=== PATIENT | female | born 1995 | race Caucasian/White ===

== ENCOUNTER 2017-02-12 08:00 | Outpatient (CLI) | payer MEDICAID | END 2017-02-12 08:01 | disposition home or self-care (01) | LOC: LAB.R 08:00 | PROVIDERS: ATTEND Nurse Practitioner Obstetrics & Gynecology | DX: Z11.3 Encounter for screening for infections with a predominantly sexual mode of transmission (principal) | CPT/HCPCS: 87491; 87591 ==

== ENCOUNTER 2017-02-28 09:51 | Outpatient (CLI) | payer MEDICAID ==
[2017-02-28 18:04] LABS: BASOPHILS % (AUTO) 0.4 %; EOSINOPHILS # (AUTO) 0.1 10^3/uL (0.0-0.7); EOSINOPHILS % (AUTO) 1.7 %; HCT - HEMATOCRIT 37.9 % (37.0-47.0); HGB - HEMOGLOBIN 12.6 g/dL (12.0-16.0); LYMPHOCYTES # (AUTO) 1.7 10^3/uL (1.5-3.5); LYMPHOCYTES % (AUTO) 20.6 %; MEAN CORPUSCULAR HEMOGLOBIN 29.7 pg (27.0-31.0); MEAN CORPUSCULAR HGB CONC 33.3 g/dL (32.0-36.0); MEAN CORPUSCULAR VOLUME 88.9 fL (81.0-99.0); MEAN PLATELET VOLUME 8.4 fL (7.9-10.8); MONOCYTES # (AUTO) 0.6 10^3/uL (0.0-1.0); MONOCYTES % (AUTO) 7.2 %; NEUTROPHILS # (AUTO) 5.9 10^3/uL (1.5-6.6); NEUTROPHILS % (AUTO) 70.1 %; RED BLOOD COUNT 4.26 10^6/uL (4.20-5.40); RED CELL DISTRIBUTION WIDTH 13.5 % (12.0-15.0); UNCORRECTED WHITE BLOOD COUNT 8.4 x10^3/uL; WHITE BLOOD COUNT 8.4 x10^3/uL (4.8-10.8)
[2017-02-28 18:10] LABS: BILIRUBIN,URINE NEGATIVE (NEGATIVE); PH,URINE 6.5 PH (5.0-7.5)
[2017-02-28 19:36] LABS: WBC,URINE 0-3 /HPF (0-5)
[2017-03-03 20:56] LABS: TEST RESULT REPORT (())
== END 2017-02-28 09:52 | disposition home or self-care (01) ==
LOC: LAB.F 09:51
PROVIDERS: ATTEND Nurse Practitioner Obstetrics & Gynecology
DX: Z36 Encounter for antenatal screening of mother (principal)
CPT/HCPCS: 36415; 81001; 81599; 85025; 86762; 86780; 86850; 86900; 86901; 87340; 87389

== ENCOUNTER 2017-03-04 20:05 | Emergency (ER) | payer MEDICAID ==
[2017-03-04] MEDS ORDERED: METOCLOPRAMIDE 10 MG/2 ML VIAL IVP STA (20:26)
[2017-03-04] MEDS ORDERED: SODIUM CHLORIDE 0.9% 1,000 ML IV STA (20:26)
[2017-03-04] MEDS ORDERED: METOCLOPRAMIDE 10 MG/2 ML VIAL ONE (20:42)
== END 2017-03-04 22:20 | disposition home or self-care (01) ==
DX: O21.0 Mild hyperemesis gravidarum (principal); O26.891 Other specified pregnancy related conditions, first trimester; R19.7 Diarrhea, unspecified; Z3A.12 12 weeks gestation of pregnancy

== ENCOUNTER 2017-03-05 06:07 | Emergency (ER) | payer MEDICAID ==
[2017-03-05] MEDS ORDERED: METOCLOPRAMIDE 10 MG/2 ML VIAL IVP STA (06:23)
[2017-03-05] MEDS ORDERED: SODIUM CHLORIDE 0.9% 1,000 ML IV STA (06:24)
[2017-03-05] MEDS ORDERED: METOCLOPRAMIDE 10 MG/2 ML VIAL ONE (06:35)
--- NOTE | 2017-03-05 07:00 | ED Physician Documentation ---
PD HPI NVD - Stated complaint Stated Complaint: NAUSEA,12 WK PG - Chief complaint Chief Complaint: Abd Pain - History obtained from History obtained from: Patient - History of Present Illness Timing - onset: How many days ago (several days of worse nausea with vomiting. Has had some related without Rx treatment. Developed worse nausea with diarrhea too starting 3 days ago. Tried rectal phenergan without improvement. Seen in ED last evening with improvement by IV fluids and Zofran, but vomiting again about 1 am. Feeling heartburn often the past few days. Having some decrease in diarrhea but still persists.) Timing - details: Gradual onset, Still present, Still present in ED Associated symptoms: Abdominal pain (intermittent crampy). No: Fever, Chest pain, Hematemesis, Near syncope / syncope Contributing factors: No: Sick contact, Bad food, Travel, Recent antibiotics Improved by: No: Eating, Meds Worsened by: Eating Recently seen: Emergency Dept (last evening) Review of Systems Constitutional: denies: Fever, Chills Nose: reports: Congestion (mild). denies: Rhinorrhea / runny nose Throat: denies: Sore throat Cardiac: denies: Chest pain / pressure, Palpitations Respiratory: denies: Dyspnea, Cough GI: reports: Nausea, Vomiting, Diarrhea. denies: Abdominal Swelling, Hematemesis, Bloody / black stool : denies: Dysuria, Frequency, Discharge, Vaginal bleeding Skin: denies: Rash, Lesions Neurologic: reports: Generalized weakness. 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), Other (currently 12 weeks ) - Past Surgical History Past Surgical History: Yes Ortho: Other - Present Medications Home Medications: Ambulatory Orders Medication Instructions Recorded Confirmed Promethazine Sup [Phenergan Supp] 12.5 mg DE Q6H PRN 03/05/17 03/05/17 - Allergies Allergies/Adverse Reactions: Allergies Allergy/AdvReac Type Severity Reaction Status Date / Time No Known Drug Allergies Allergy Verified 03/04/17 20:13 - Social History Does the pt smoke?: No Smoking Status: Never smoker Does the pt drink ETOH?: Yes Does the pt have substance abuse?: No - Immunizations Immunizations are current?: Yes - POLST Patient has POLST: No PD ED PE NORMAL - Vitals Vital signs reviewed: Yes - General General: Alert and oriented X 3, No acute distress, Well developed/nourished - HEENT HEENT: PERRL (nonicteric) - Neck Neck: Supple, no meningeal sign, No adenopathy - Cardiac Cardiac: RRR, No murmur - Respiratory Respiratory: Clear bilaterally - Abdomen Abdomen: Normal bowel sounds, Soft, Non distended, No organomegaly, Other (some tender epigastric. Not tender RLQ. ) - Female Female : Deferred - Rectal Rectal: Deferred - Back Back: No CVA TTP - Derm Derm: No: Normal color (pale) - Extremities Extremities: No tenderness to palpate, No edema, No calf tenderness / cord - Neuro Neuro: Alert and oriented X 3, No motor deficit, Normal speech Results - Vitals Vitals: Vital Signs - 24 hr 03/05/17 03/05/17 06:12 07:53 Temperature 36.4 C L Heart Rate 91 83 Respiratory 20 20 Rate Blood Pressure 136/71 H 129/80 O2 Saturation 99 100 Oxygen O2 Source Room air PD MEDICAL DECISION MAKING - ED course Complexity details: reviewed old records, re-evaluated patient (several meds here in ED and still nauseated. She will need to be in hospital for further treatment and hydration. ), considered differential (seems likely baseline related nausea, which she has had, with now likely GE given the worse vomiting and diarrhea. ), d/w patient, d/w reservoir engineering consultant (Grace, media production support manager) Departure - Departure Disposition: ED Place in Observation Clinical Impression: Nausea vomiting and diarrhea Intractable nausea and vomiting Qualifiers: Vomiting type: unspecified Qualified Code(s): R11.2 - Nausea with vomiting, unspecified Qualifiers: Weeks of gestation: 12 weeks Qualified Code(s): Z3A.12 - 12 weeks gestation of Condition: Stable Record reviewed to determine appropriate education?: Yes
[2017-03-05] MEDS ORDERED: ONDANSETRON 4 MG/2 ML VIAL IVP STA ×3 (07:12→08:45)
[2017-03-05] MEDS ORDERED: FAMOTIDINE 20 MG/50 ML 50 ML IV ONE ×2 (07:13→07:16)
[2017-03-05] MEDS ORDERED: ONDANSETRON 4 MG/2 ML VIAL ONE ×3 (07:15→08:45)
[2017-03-05] MEDS ORDERED: diphenhydrAMINE INJ 50 MG/ML VIAL IVP STA (07:45)
[2017-03-05] MEDS ORDERED: diphenhydrAMINE INJ 50 MG/ML VIAL ONE (07:49)
[2017-03-05] MEDS ORDERED: SODIUM CHLORIDE 0.9% 1,000 ML IV ONE (08:12)
[2017-03-05 09:11] VITALS: BP 131/72
== END 2017-03-05 09:30 | disposition home or self-care (01) ==
LOC: ED 06:07
DX: O21.0 Mild hyperemesis gravidarum (principal); O26.891 Other specified pregnancy related conditions, first trimester; R19.7 Diarrhea, unspecified; Z3A.12 12 weeks gestation of pregnancy
CPT/HCPCS: 96374; 96375; 96376; 99283; 99284

== ENCOUNTER 2017-03-05 09:22 | Inpatient (IN) | payer MEDICAID ==
[2017-03-05] MEDS: diphenhydrAMINE INJ 50 MG/ML VIAL IVP PRN ×3 (10:44→22:36)
[2017-03-05] MEDS ORDERED: LACTATED RINGERS 1,000 ML IV ONE (11:00)
[2017-03-05] MEDS: DEXTROSE 5%-LACTATED RINGERS 1,000 ML IV SCH ×2 (11:46→19:45)
[2017-03-05] MEDS: METOCLOPRAMIDE 10 MG/2 ML VIAL IVP PRN ×2 (12:27→20:29)
[2017-03-05] MEDS: ONDANSETRON 4 MG/2 ML VIAL IVP PRN ×3 (12:42→21:34)
[2017-03-05] MEDS ORDERED: SODIUM CHLORIDE FLUSH 0.9% 10 ML SYRINGE IVP ONE ×2 (16:10→20:25)
[2017-03-05] MEDS ORDERED: FAMOTIDINE 20 MG/50 ML 50 ML IV ONE (19:48)
[2017-03-05] MEDS: FAMOTIDINE 20 MG/50 ML 50 ML IV SCH (19:50)
[2017-03-05] MEDS ORDERED: SCOPOLAMINE PATCH TOP SCH (21:30)
[2017-03-06] MEDS ORDERED: SODIUM CHLORIDE FLUSH 0.9% 10 ML SYRINGE IVP ONE ×7 (01:21→16:54)
[2017-03-06] MEDS: ONDANSETRON 4 MG/2 ML VIAL IVP PRN ×4 (01:31→19:59)
[2017-03-06] MEDS: METOCLOPRAMIDE 10 MG/2 ML VIAL IVP PRN ×2 (02:16→07:58)
[2017-03-06] MEDS: DEXTROSE 5%-LACTATED RINGERS 1,000 ML IV SCH ×2 (02:25→07:49)
[2017-03-06] MEDS ORDERED: ONDANSETRON 4 MG/2 ML VIAL IVP ONE (03:07)
[2017-03-06] MEDS: diphenhydrAMINE INJ 50 MG/ML VIAL IVP PRN (04:23)
[2017-03-06] MEDS: MAG HYDROX/AL HYDROX/SIMETH 30 ML UDC PO PRN ×3 (04:29→13:09)
[2017-03-06] MEDS ORDERED: diphenhydrAMINE INJ 50 MG/ML VIAL IVP PRN (09:18)
[2017-03-06] MEDS: PROMETHAZINE INJ 25 MG in SODIUM CHLORIDE 0.9% 50 ML IV PRN ×3 (10:15→23:22)
[2017-03-06] MEDS: MULTIVITAMIN IV SCH (10:47)
[2017-03-06] MEDS: THIAMINE IV SCH (10:47)
[2017-03-06] MEDS: [UNRECOGNIZED DRUG - OTHER] IV SCH (10:47)
[2017-03-06] MEDS: FOLIC ACID IV SCH (10:47)
[2017-03-06] MEDS: FAMOTIDINE 20 MG/50 ML 50 ML IV SCH ×2 (11:56→21:07)
[2017-03-06] MEDS: HYDROCORTISONE SUCCINATE 100 MG/2 ML VIAL IVP SCH ×2 (14:26→21:07)
[2017-03-06] MEDS: CALCIUM CARBONATE CHEW 500 MG TABLET PO PRN ×2 (20:30→22:16)
[2017-03-06] MEDS ORDERED: DOXYLAMINE 25 MG TABLET PO SCH (21:00)
[2017-03-07] MEDS: ONDANSETRON 4 MG/2 ML VIAL IVP PRN ×3 (01:19→10:33)
[2017-03-07] MEDS: DEXTROSE 5%-LACTATED RINGERS 1,000 ML IV SCH (05:05)
[2017-03-07] MEDS: PROMETHAZINE INJ 25 MG in SODIUM CHLORIDE 0.9% 50 ML IV PRN (05:09)
[2017-03-07] MEDS: CALCIUM CARBONATE CHEW 500 MG TABLET PO PRN ×3 (09:29→13:25)
[2017-03-07] MEDS: FAMOTIDINE 20 MG/50 ML 50 ML IV SCH (09:29)
[2017-03-07] MEDS ORDERED: SODIUM CHLORIDE FLUSH 0.9% 10 ML SYRINGE IVP ONE ×3 (09:59→12:20)
[2017-03-07] MEDS: HYDROCORTISONE SUCCINATE 100 MG/2 ML VIAL IVP SCH (10:03)
[2017-03-07] MEDS: MULTIVITAMIN IV SCH (11:28)
[2017-03-07] MEDS: FOLIC ACID IV SCH (11:28)
[2017-03-07] MEDS: THIAMINE IV SCH (11:28)
[2017-03-07] MEDS: [UNRECOGNIZED DRUG - OTHER] IV SCH (11:28)
[2017-03-07] MEDS ORDERED: ceFAZolin 1 GM VIAL IVP STA (12:20)
[2017-03-07] MEDS ORDERED: ceFAZolin 1 GM in SODIUM CHLORIDE 0.9% MINIBAG 100 ML IV ONE (13:00)
== END 2017-03-07 14:40 | disposition home or self-care (01) | DRG 781 ==
DX: O21.0 Mild hyperemesis gravidarum (principal); O98.511 Other viral diseases complicating pregnancy, first trimester; Z3A.12 12 weeks gestation of pregnancy; A08.4 Viral intestinal infection, unspecified

== ENCOUNTER 2017-04-03 08:56 | Outpatient (CLI) | payer MEDICAID ==
[2017-04-04 13:51] LABS: TEST RESULT REPORT (())
== END 2017-04-03 08:57 | disposition home or self-care (01) ==
LOC: LAB.F 08:56
PROVIDERS: ATTEND Nurse Practitioner Family
DX: Z36 Encounter for antenatal screening of mother (principal)
CPT/HCPCS: 36415; 81511; 81599

== ENCOUNTER 2017-05-02 13:38 | Outpatient (CLI) | payer MEDICAID ==
--- NOTE | 2017-05-06 15:00 | Ultrasound Report ---
OB ULTRASOUND: 05/02/2017 CLINICAL INDICATION: anatomy. TECHNIQUE: Real-time scanning was performed with account development representative static images obtained. LAST MENSTRUAL PERIOD 12/10/2016 Clinical Age 20 weeks 3 days US Age 20 weeks 1 day EFW Hadlock 337 g EFW% Hadlock --- Heart Rate 155 bpm EDC 09/16/2017 US EDC 09/18/2017 BPD [place] 20 weeks 0 days; Mean mm 46.5 HC [place] 20 weeks 1 day; Mean mm 175.7 AC [place] 20 weeks 3 days; Mean mm 151.7 FL [place] 20 weeks 0 days; Mean mm 32.0 Presentation cephalic Placental Location anterior Cervical Length --- Amniotic Fluid 14.5 cm FINDINGS: There is a single viable intrauterine gestation, in cephalic presentation. heart rate is 155 BPM. The placenta is anterior, without evidence of previa. Amniotic fluid volume is normal, with an HAO of 14.5. By size, the fetus measures 20.1 weeks (20.5 weeks by LMP). The following anatomic structures were visualized and appear normal: The intracranial contents, including the ventricles and posterior fossa; the lips and orbits; the spine; the heart, including 4 chamber view and outflow tracts, and diaphragm; the abdominal contents, including the stomach, the bilateral kidneys, and urinary bladder, as well as a normal 3 vessel cord insertion; 4 limbs. No free fluid or adnexal lesion is appreciated. IMPRESSION: SINGLE VIABLE INTRAUTERINE GESTATION, WITH SIZE IN KEEPING WITH LMP DATING. NORMAL ANATOMIC SURVEY. [facility]
== END 2017-05-02 13:39 | disposition home or self-care (01) ==
LOC: DI 13:38
PROVIDERS: ATTEND Nurse Practitioner Obstetrics & Gynecology
DX: Z34.82 Encounter for supervision of other normal pregnancy, second trimester (principal); Z3A.20 20 weeks gestation of pregnancy
CPT/HCPCS: 76811

== ENCOUNTER 2017-06-12 14:33 | Outpatient (CLI) | payer MEDICAID ==
[2017-06-12 16:15] LABS: BASOPHILS % (AUTO) 0.3 %; EOSINOPHILS # (AUTO) 0.2 10^3/uL (0.0-0.7); EOSINOPHILS % (AUTO) 1.5 %; HGB - HEMOGLOBIN 10.4 g/dL (12.0-16.0); LYMPHOCYTES # (AUTO) 1.8 10^3/uL (1.5-3.5); LYMPHOCYTES % (AUTO) 16.6 %; MEAN CORPUSCULAR HEMOGLOBIN 29.8 pg (27.0-31.0); MEAN CORPUSCULAR HGB CONC 33.5 g/dL (32.0-36.0); MEAN CORPUSCULAR VOLUME 88.9 fL (81.0-99.0); MEAN PLATELET VOLUME 7.8 fL (7.9-10.8); MONOCYTES # (AUTO) 0.8 10^3/uL (0.0-1.0); MONOCYTES % (AUTO) 7.1 %; NEUTROPHILS # (AUTO) 7.9 10^3/uL (1.5-6.6); NEUTROPHILS % (AUTO) 74.5 %; RED BLOOD COUNT 3.49 10^6/uL (4.20-5.40); RED CELL DISTRIBUTION WIDTH 13.5 % (12.0-15.0); UNCORRECTED WHITE BLOOD COUNT 10.7 x10^3/uL; WHITE BLOOD COUNT 10.7 x10^3/uL (4.8-10.8)
== END 2017-06-12 14:34 | disposition home or self-care (01) ==
LOC: LAB.F 14:33 → LAB 14:34
PROVIDERS: ATTEND Registered Nurse
DX: Z34.82 Encounter for supervision of other normal pregnancy, second trimester (principal)
CPT/HCPCS: 36415; 82950; 85025; 86850

== ENCOUNTER 2017-06-14 18:34 | Outpatient (CLI) | payer MEDICAID ==
[2017-06-14] MEDS ORDERED: ONDANSETRON 4 MG/2 ML VIAL ONE (19:38)
[2017-06-14] MEDS ORDERED: SODIUM CHLORIDE FLUSH 0.9% 10 ML SYRINGE IVP ONE (19:39)
[2017-06-14] MEDS ORDERED: LACTATED RINGERS 1,000 ML IV ONE (19:39)
[2017-06-14 20:02] VITALS: BP 119/62
[2017-06-14 21:33] LABS: BILIRUBIN,URINE NEGATIVE (NEGATIVE)
[2017-06-14 21:38] LABS: UR CULTURE IF IND NOT INDICATED; WBC,URINE 0-3 /HPF (0-5)
[2017-06-14] MEDS ORDERED: LACTATED RINGERS 1,000 ML IV SCH (22:00)
[2017-06-14] MEDS ORDERED: LACTATED RINGERS 500 ML IV ONE (22:00)
[2017-06-14] MEDS ORDERED: ONDANSETRON 4 MG/2 ML VIAL IVP SCH (22:00)
== END 2017-06-14 21:25 | disposition home or self-care (01) ==
LOC: WFO 18:34 → FBP 18:35 → WFO 21:25
PROVIDERS: ATTEND Registered Nurse
DX: O21.9 Vomiting of pregnancy, unspecified (principal); Z3A.26 26 weeks gestation of pregnancy
CPT/HCPCS: 81001; 96374; 99213; A9270; J7120; 87086

== ENCOUNTER 2017-08-01 13:31 | Outpatient (CLI) | payer MEDICAID ==
[2017-08-01 13:52] LABS: HCT - HEMATOCRIT 30.5 % (37.0-47.0); HGB - HEMOGLOBIN 10.2 g/dL (12.0-16.0); MEAN CORPUSCULAR HEMOGLOBIN 28.8 pg (27.0-31.0); MEAN CORPUSCULAR HGB CONC 33.4 g/dL (32.0-36.0); MEAN CORPUSCULAR VOLUME 86.1 fL (81.0-99.0); RED BLOOD COUNT 3.55 10^6/uL (4.20-5.40); RED CELL DISTRIBUTION WIDTH 14.6 % (12.0-15.0); WHITE BLOOD COUNT 11.4 x10^3/uL (4.8-10.8)
== END 2017-08-01 13:32 | disposition home or self-care (01) ==
LOC: LAB 13:31
PROVIDERS: ATTEND Registered Nurse
DX: O99.13 Other diseases of the blood and blood-forming organs and certain disorders involving the immune mechanism complicating the puerperium (principal)
CPT/HCPCS: 36415

== ENCOUNTER 2017-09-20 11:05 | Inpatient (IN) | payer MEDICAID ==
[~2017-09-20 11:05] MED LIST: ONDANSETRON 4 MG/2 ML VIAL IVP PRN; OXYTOCIN/SODIUM CHLORIDE 250 ML IV ONE; PENICILLIN G POTASSIUM 5,000,000 UNIT in SODIUM CHLORIDE 0.9% MINIBAG 100 ML IV ONE; SODIUM CHLORIDE FLUSH 0.9% 10 ML SYRINGE IVP PRN; fentaNYL 100 MCG/2 ML VIAL IVP PRN
[2017-09-20 11:56] LABS: BASOPHILS # (AUTO) 0.1 10^3/uL (0.0-0.1); BASOPHILS % (AUTO) 0.4 %; EOSINOPHILS # (AUTO) 0.1 10^3/uL (0.0-0.7); EOSINOPHILS % (AUTO) 0.5 %; HGB - HEMOGLOBIN 10.9 g/dL (12.0-16.0); LYMPHOCYTES # (AUTO) 1.5 10^3/uL (1.5-3.5); LYMPHOCYTES % (AUTO) 12.1 %; MEAN CORPUSCULAR HEMOGLOBIN 28.5 pg (27.0-31.0); MEAN CORPUSCULAR HGB CONC 33.8 g/dL (32.0-36.0); MEAN CORPUSCULAR VOLUME 84.3 fL (81.0-99.0); MEAN PLATELET VOLUME 8.2 fL (7.9-10.8); MONOCYTES # (AUTO) 0.6 10^3/uL (0.0-1.0); MONOCYTES % (AUTO) 5.1 %; NEUTROPHILS # (AUTO) 10.3 10^3/uL (1.5-6.6); NEUTROPHILS % (AUTO) 81.9 %; PLT - PLATELET COUNT 248 10^3/uL (130-450); RED BLOOD COUNT 3.82 10^6/uL (4.20-5.40); RED CELL DISTRIBUTION WIDTH 16.7 % (12.0-15.0); WHITE BLOOD COUNT 12.6 x10^3/uL (4.8-10.8)
[2017-09-20] MEDS: LACTATED RINGERS 1,000 ML IV SCH ×2 (12:12→15:56)
--- NOTE | 2017-09-20 13:04 | HISTORY & PHYSICAL EXAMINATION ---
Admit History - Instructions [place]/Slash: -Left hand click circles element as positive or present. -Right hand click slashes element as negative or not present. - Visit Reason Visit Reason: Contractions (0630 onset of contractions; worse since 1000, no LOF /VB) - : 2 Parity: 1 Premature: 0 Ectopic: 0 : 0 Care: positive: [facility] Risk/History: positive: None Complications This : positive: Other (hyperemesis) Smoking Status: Former smoker - Mother's Labs Mother's Blood Type: positive: A Mother's RH: positive: Positive GBS: positive: Group B Strep Positive Rubella Status: positive: Immune - Other Maternal History Other Maternal History: Chani is a 21 y/o @ 40w4d who presents today accompanied by her partner , Neo, who is involved & supportive, and a cadre of supportive friends. She reports SOOC @ 0603 w/ increasing intensity & frequency around 1000. She denies LOF/VB. She reports good FM. She received care beginning @ 9 weeks & was dated by an ultrasound that was concordant w/ her menstrual dating @ that point. Her course was complicated by mild anemia & hyperemesis that resolved w/ cessation of MJ use. She screened positive for GBS @ 36 weeks ' gestation. She is intending to breastfeed her & is interested in epidural anesthesia. She has a hx of VAVD for 8#13oz male w/o complication. She had an early TAB w/o complication the year following. She has had hand surgery for an injury but has not otherwise had surgery & does not have any significant medical hx. She is unemployed & lives with her partner & his family, who are supportive. She denies ETOH use; she used MJ consistently until ~26 weeks' of & then discontinued secondary to cannabinoid hyperemesis. She denies other drug use. She is a former smoker who has not smoked tobacco this . Meds/Allgy - Home Medications Home Medications: Ambulatory Orders Medication Instructions Recorded Confirmed Promethazine Sup [Phenergan Supp] 12.5 mg ME Q6H PRN 03/05/17 03/05/17 - Allergies Allergies/Adverse Reactions: Allergies Allergy/AdvReac Type Severity Reaction Status Date / Time No Known Drug Allergies Allergy Verified 03/04/17 20:13 Physical - Abdominal Exam Contraction Frequency (min/apart): 3-4 Contraction Intensity: positive: Moderate Uterine Resting Tone: positive: Soft - Monitoring Heart Rate Baseline: 140 Strip Review: positive: Category II - Presentation Presentation: positive: Vertex - Vaginal Exam Membranes: positive: Membranes intact Dilation (in cm): 5 Effacement (%): 100 Station: positive: -1 Cervical Position: positive: Anterior - Speculum Exam Speculum Exam Performed: positive: No - Other Notes Labor Progress Note/Additional Text: Chani is a 21 y/o who presents in spontaneous active labor @ term w/ IBOW. She is raymond consistently & painfully. She declines epidural @ this time but is interested in anesthesia for pain control. She is well- supported by her partner, Neo. Her has been complicated by mild anemia, hyperemesis & GBS positive screening. ROS: GEN: NO FEVER/CHILLS; + FATIGUE, SLEPT POORLY HEENT: NO ROACH/VISION CHANGES RESP: NO SOB/DYSPNEA/COUGH CARDIAC: NO CP/PALPITATIONS GI: +NAUSEA, NO VOMITING, NO DIARRHEA : NO DYSURIA, +FREQUENCY, NO LOF/VB + MUCOID VAGINAL D/C, NO LESIONS OB: +FM, +PAINFUL UTERINE CONTRACTIONS, NO LOF/VB SKIN: ACNE, ROSACEA, NO OTHER LESIONS, NO PRURITUS MS: +LUMBAR PAIN, NO OTHER PAIN, FROM NEURO: NO NUMBNESS/TINGLING/WEAKNESS PSYCH: SOME ANXIETY, NO DEPRESSION, EXCITED TO MEET BABY PE: GEN:AAOX3, UNCOMFORTABLE WA GRAVID FEMALE HEENT: +FACIAL ACNE, ERYTHEMA, OTHERWISE GROSSLY NORMOCEPHALIC/ATRAUMATIC, FACIAL PIERCINGS RESP: LUNGS B/L CTA T/O CARDIAC: RRR NLS1S2, NO MURMUR GI: ABD GRAVID, PALPABLE MODERATE UTERINE CONTRACTIONS, PALPABLE MOVEMENT ; LIE LONGITUDINAL, PRESENTATION CEPHALIC, EFW 8-8.5# : NO LESION, NO LOF/VB OB: EFM: BL 145 +ACCELS, +OCC KRISTA DECEL TO VERONICA IN 110S W/ SPONT RETURN TO BASELINE <30 SECONDS, MOD VARIABILITY; TOCO: UCS Q 3-4 MIN [id number], PALP MOD SKIN: FACIAL ACNE, CYSTIC; ERYTHEMA; MULTIPLE TATTOOS, MULTIPLE PIERCINGS, ABDOMINAL STRIAE MS: FROM T/O, NO EDEMA, NO ERYTHEMA NEURO: NO FOCAL DEFICIT PSYCH: ANXIOUS, UNCOMFORTABLE ASSESSEMENT: 21 Y/O @ 40w4d by 1st trimester US in spontaneous, active labor @ term; GBS positive w/ IBOW, adequate pain control w/ position changes, good social support, FHTS cat II for intermittent variables, overall reassuring w/o evidence of acidemia Plan for Labor - Plan For Labor Plan for Labor: 1. admit 2. IV PCN per protocol for GBS prophylaxis 3. AROM as pt desires for augmentation s/p PCN infused 4. Analgesia/anesthesia PRN per pt request 5. Reassess cervical status w/ clinical change or maternal request, x4 hours if no other indication 6. Reviewed optimal maternal positioning to encourage rotation & descent, optimal activity for active phase of 1st stage of labor, reviewed labor physiology & anticipatory guidance 7. Anticipate 8. reviewed plan of care w/ pt, partner & RN @ bedside; all in agreement, without concerns
[2017-09-20] MEDS ORDERED: LIDOCAINE-PF 2% 10 ML AMP SUBQ ONE (14:00)
[2017-09-20] MEDS ORDERED: ROPIVACAINE 0.2% PF 10 ML VIAL EPI ONE (14:00)
[2017-09-20] MEDS ORDERED: SODIUM CHLORIDE FLUSH 0.9% 10 ML SYRINGE IVP SCH (14:00)
--- NOTE | 2017-09-20 14:04 | PROVIDER PROGRESS NOTE ---
Labor Progress Note - Uterine Monitoring Uterine Monitoring Mode: positive: External toco Contraction Frequency (min/apart): 4-5 Contraction Intensity: positive: Moderate to strong Uterine Resting Tone: positive: Soft - Monitoring Monitor Mode: positive: External ultrasound Heart Rate Baseline: 130 Heart Rate Variability: positive: Moderate (6-25 bmp) Accelerations: positive: Present, 15x15 Decelerations: positive: Variable (to ron in 110s w/ spontaneous return to baseline <30 seconds), Intermittent (<50% x20 min) Strip Review: positive: Category II - Vaginal Exam Dilation (in cm): 7 Effacement (%): 80 Station: -1 Cervical Position: Midposition (soft BBOW) - Labor Progress Note Labor Progress Note/Additional Text: S: Chani is requesting epidural anesthesia. Her partner & friends are @ the bedside, supportive. O: VS: T 97.7po HR 88 RR 16 BP 126/60 EFM: BL 130bpm, + accels, occ aurora decels to ron in 110s w/ spontaneous return to baseline <30 seconds TOCO: UCs q 3-5 min x90 seconds, palp strong SVE: 7/80/-1 BBOW--change from RN exam 5100/-1 A: 21 y/o @ 40w4d in spontaneous, active labor Progressive cervical change GBS pos w/ IBOW, s/p loading dose of PCN for prophylaxis Inadequate pain control w/ desire for epidural anesthesia FHTs cat II for intermittent variables, overall reassuring w/o evidence of acidemia P: 1. epidural placement now 2. continue GBS prophylaxis w/ IV PCN per protocol 3. Reassess cervical status x4 hours 4. Encouraged maternal rest s/p epidural placement, reviewed optimal positioning to encourage rotation & descent 5. Anticipate 6. Reviewed plan of care w/ pt, partner & RN @ bedside; all in agreement, without concerns.
[2017-09-20] MEDS ORDERED: fent/BUPIV 2 MCG/0.125% 250 ML EP ONE (14:43)
[2017-09-20] MEDS ORDERED: ONDANSETRON 4 MG/2 ML VIAL IVP PRN (15:06)
[2017-09-20] MEDS ORDERED: NALBUPHINE 20 MG/ML AMP IVP PRN (15:06)
[2017-09-20] MEDS ORDERED: diphenhydrAMINE INJ 50 MG/ML VIAL IVP PRN (15:06)
[2017-09-20] MEDS ORDERED: NALOXONE 0.4 MG/ML VIAL IVP PRN (15:06)
[2017-09-20] MEDS ORDERED: LACTATED RINGERS 500 ML IV ONE (15:06)
[2017-09-20] MEDS ORDERED: ePHEDrine 50 MG/ML VIAL IVP PRN (15:06)
[2017-09-20] MEDS ORDERED: fent/BUPIV 2 MCG/0.125% 250 ML EP PRN (15:06)
[2017-09-20] MEDS ORDERED: PENICILLIN G POTASSIUM 2,500,000 UNIT in SODIUM CHLORIDE 0.9% 100ML 100 ML IV SCH (16:00)
[2017-09-20] MEDS ORDERED: MINERAL OIL LIGHT 10 ML MC ONE (17:51)
[2017-09-20] MEDS ORDERED: OXYTOCIN/SODIUM CHLORIDE 250 ML IV ONE (18:30)
--- NOTE | 2017-09-20 18:41 | DELIVERY NOTE ---
Delivery Note - Labor Labor: positive: Spontaneous - Delivery Method Delivery Method: positive: Spontaneous vaginal delivery - Presentation Presentation: positive: Vertex, MARIVEL - right occiput anterior - Nuchal Cord Nuchal Cord: positive: Present (x2, loose), Reduced - Anesthetic Anesthetic Type: - Amniotic Fluid Description Amniotic Fluid Description: positive: Clear - Laceration Laceration: positive: Vaginal (L-side wall) - Suture Suture Type: positive: Vicryl Suture Size: positive: 2-0 - Delivery Outcome Delivery Outcome: positive: Livebirth - [place] : positive: Placed in direct skin contact with mother, Stimulated, Warmed , [place] used [place] sex: positive: Female - Cord Cord: positive: 3 vessels - Placenta Placenta: positive: Intact, Spontaneous - Estimated Blood Loss Estimated Blood Loss (in cc): 500 - Post Delivery Events Post Delivery Events: positive: No post delivery events - Delivery Comments (Free Text/Narrative) Delivery Comments (Free Text/Narrative): Chani Beckford is a 21 y/o G3now P2 who was admitted in spontaneous, active labor @ term @ 40w4d by 1st trimester US dating. She progressed spontaneously & requested & received an epidural for anesthesia. She experienced SROM @ complete dilatation @ 1735 for a total first stage duration of 7 hours, 35 minutes. She pushed w/ spontaneous urge & direction to viable female in MARIVEL position over an intact perineum @ 181, for a total 2nd stage duration of 43minutes; active pushing x2 minutes. Loose nuchal x2 reduced easily prior to delivery of shoulders/body. vigorous w/ spontaneous, lusty cry. Placed to maternal abd for drying/stim. Delayed cord clamping until cessation of pulsation, then cord clamped x2 by CNM, cut by FOB. 3VC noted, cord blood obtained. AMTSL w/ Pitocin in IV fluids. Placenta del spont & intact, Gerard , @ 1817 for a total 3rd stage duration of 5 minutes . FF U-2. Vagina & perineum inspected & L vaginal sidewall laceration noted, repaired under epidural anesthesia w/ 2-0 vicryl. Hemostatic & well-approximated. EBL 500mL. Mother & stable. Infant weight 8#5oz, apgars 8/9. Actively suckling @ breast w/in 20 minutes of delivery.
[2017-09-20] MEDS ORDERED: LACTATED RINGERS 1,000 ML IV SCH (19:00)
[2017-09-20] MEDS: ACETAMINOPHEN 325 MG TABLET PO SCH (20:23)
[2017-09-20] MEDS: CELECOXIB 100 MG CAPSULE PO SCH (20:23)
[2017-09-20] MEDS ORDERED: SODIUM CHLORIDE FLUSH 0.9% 10 ML SYRINGE ONE (22:54)
[2017-09-21] MEDS: ACETAMINOPHEN 325 MG TABLET PO SCH ×4 (03:10→20:00)
[2017-09-21] MEDS: CELECOXIB 100 MG CAPSULE PO SCH ×2 (08:09→20:00)
--- NOTE | 2017-09-21 10:26 | PROVIDER PROGRESS NOTE ---
Subjective - Prog Note Date Prog Note Date: 09/21/17 Prog Note Time: 10:20 - Subjective Pt reports feeling: Improved Subjective: Chani is feeling well. She reports some discomfort w/ uterine cramping while she is nursing, but feels her discomfort is generally well-controlled w/ NSAID & acetaminophen. She has some perineal tenderness when sitting upright as well. She has no discomfort w/ voiding. She has not yet had a bowel movement. She reports minimal lochia rubra. She is well w/ excellent latch & no discomfort. She is ambulating & tolerating po intake w/o difficulty. She is not planning to return to work. She has no hx of pp depression. Her partner, Neo, is present & actively involved & supportive. He is planning to take the next week off. Her toddler has met & responded well to the . She has excellent social support to assist w/ care as needed. She is not planning another & plans pp paragard insertion @ 6 weeks. Current Medications - Current Medications Current Medications: celebrex 200mg po BID acetaminophen 650mg po q6hrs Objective - Vital Signs/Intake & Output Vital Signs: Vital Signs x48h Temp Pulse Resp BP Pulse Ox 09/21/17 08:00 36.8 C 79 16 109/72 99 09/21/17 05:00 36.7 C 80 16 126/69 98 Intake & Output: Intake & Output 09/18/17 09/19/17 09/20/17 09/21/17 23:59 23:59 23:59 23:59 Intake Total 3183.333 Output Total 1950 Balance 1233.333 - Objective General Appearance: positive: No acute distress, Alert Eyes Bilateral: positive: Normal inspection, PERRL, EOMI ENT: positive: ENT inspection nml Respiratory: positive: Chest non-tender, No respiratory distress, Breath sounds nml Cardiovascular: positive: Regular rate & rhythm, No murmur, No gallop Abdomen: positive: Non-tender, No distention, Other (FF U-2; rectus diastasis) Skin: positive: Color nml, No rash, Warm, Dry Extremities: positive: Non-tender, Full ROM, Nml appearance, No pedal edema. negative: Calf tenderness Neurologic/Psychiatric: positive: Oriented x3, CN's nml (2-12), Motor nml, Sensation nml, Mood/affect nml Comments/Other: Breasts b/l s, NT; nipples b/l intact & everted, colostrum readily expressible; perineum intact w/o erythema/edema/ecchymosis, minimal lochia rubra - Lab Results Fish Bones: 09/20/17 11:45 Other Labs: Lab Results x24hrs 09/20/17 Range/Units 11:45 WBC 12.6 H (4.8-10.8) x10^3/uL RBC 3.82 L (4.20-5.40) 10^6/uL Hgb 10.9 L (12.0-16.0) g/dL Hct 32.2 L (37.0-47.0) % MCV 84.3 (81.0-99.0) fL MCH 28.5 (27.0-31.0) pg MCHC 33.8 (32.0-36.0) g/dL RDW 16.7 H (12.0-15.0) % Plt Count 248 (130-450) 10^3/uL MPV 8.2 (7.9-10.8) fL Neut # 10.3 H (1.5-6.6) 10^3/uL Lymph # 1.5 (1.5-3.5) 10^3/uL [place] # 0.6 (0.0-1.0) 10^3/uL Eos # 0.1 (0.0-0.7) 10^3/uL Baso # 0.1 (0.0-0.1) 10^3/uL Absolute Nucleated RBC 0.00 x10^3/uL Nucleated RBC % 0.0 /100WBC Assessment/Plan - Problem List (1) (normal spontaneous vaginal delivery) Impression: PPD#1 s/p w/ vaginal sidewall laceration w/ repair, normal uterine involution Adequate pain control w/o opioid analgesia well Minimal lochia rubra Plan: 1. continue routine pp care 2. reviewed activity, anticipatory guidance, warning s/sx 3. support provided 4. anticipate D/C home PPD#2
[2017-09-21] MEDS: oxyCODONE 5 MG TABLET PO PRN (20:45)
[2017-09-22] MEDS: oxyCODONE 5 MG TABLET PO PRN (03:04)
[2017-09-22] MEDS: ACETAMINOPHEN 325 MG TABLET PO SCH ×2 (03:05→08:21)
[2017-09-22] MEDS: CELECOXIB 100 MG CAPSULE PO SCH (08:23)
--- NOTE | 2017-09-22 08:36 | Discharge Plan ---
Discharge Plan Disposition: 01 Home, Self Care Condition: Good Diet: Regular Activity Restrictions: No Restrictions Shower Restrictions: No Driving Restrictions: No Weight Bearing: Full Weight Instruction Topics: Vaginal After, Breastfeed How To, Breastfeed Holds, Breastmilk Expressing, Nutrition , , Self Care Additional Instructions or Follow Up instructions: x2 weeks & x6 weeks as outpatient in clinic w/ Jens Schaeffer CNM/BARBARA/ [place] No Smoking: If you smoke, Please STOP! Call for help. Follow-up with: Jens Schaeffer CNM, ARNP [Provider Admit Priv/Credential] -
--- NOTE | 2017-09-22 08:39 | DISCHARGE SUMMARY ---
"Discharge Summary Admit Date: 09/20/17 Discharge Date: 09/22/17 Discharging Provider: STEPHANIE Code Status: Attempt Resuscitation Condition at Discharge: Good Discharge Disposition: Home, Self Care Discharge Facility Name: [facility] - DIAGNOSES Admission Diagnoses: ACTIVE LABOR AT TERM GBS POSITIVE Discharge Diagnoses with Status of Each Condition: REPAIR OF VAGINAL LACERATION - HPI History of Present Illness: Chani is a 21 y/o [id number] who was admitted in spontaneous, active labor @ term. She received 2 doses PCN for GBS prophylaxis during labor & an epidural for anesthesia. She progressed spontaneously & underwent SROM @ complete dilatation, then went on to deliver vaginally over an intact perineum w/o complication. She underwent repair of L vaginal sidewall laceration w/ 2- 0vicryl & was well shortly after delivery. - CONSULTS | PROCEDURES Consultations: anesthesia Procedures: epidural placement repair of vaginal laceration - HOSPITAL COURSE Hospital Course: , Chani is ambulating & voiding w/o difficulty. She is tolerating po intake & passing flatus. She has not yet had a BM. She has minimal lochia rubra. Her pain is well-controlled, although she has more cramping w/ nursing. She will use NSAIDs and heat for management at home. She is well w/ excellent latch. She denies hx of pp depression & reports excellent social support. She does not plan another & intends paragard IUD insertion @ her 6-wk pp visit. Her partner will have 1 week off to assist her at home & she will not be returning to work. She is able to fully articulate pp warning s/sx, including pp depression s/sx, and pp aftercare instructions. She is ready to leave the hospital. - ALLERGIES Allergies/Adverse Reactions: Allergies Allergy/AdvReac Type Severity Reaction Status Date / Time No Known Drug Allergies Allergy Verified 03/04/17 20:13 - MEDICATIONS Home Medications: Ambulatory Orders Medication Instructions Recorded Confirmed Promethazine Sup [Phenergan Supp] 12.5 mg [place] Q6H PRN 03/05/17 03/05/17 - PHYSICAL EXAM AT DISCHARGE General Appearance: positive: No acute distress, Alert Eyes Bilateral: positive: Normal inspection, PERRL, EOMI ENT: positive: ENT inspection nml Respiratory: positive: Chest non-tender, No respiratory distress, Breath sounds nml Cardiovascular: positive: Regular rate & rhythm, No murmur, No gallop Abdomen: positive: Non-tender, Other (FF U-3) Skin: positive: Color nml, No rash, Warm, Dry Extremities: positive: Non-tender, Full ROM, Nml appearance, No pedal edema Neurologic/Psychiatric: positive: Oriented x3, CN's nml (2-12), Motor nml, Sensation nml, Mood/affect nml Physical Exam Other/Comments: breasts b/l s, nt. Nipples b/l intact & everted, milk easily expressible. Perineum intact w/o erythema/edema/ecchymosis, minimal lochia rubra. - LABS Result Diagrams: 09/20/17 11:45 - FOLLOW UP Follow Up: x2 weeks at [facility] w/ Jens Schaeffer, earlier PRN - TIME SPENT Time Spent in Discharge (Minutes): 30"
[2017-09-22 11:30] VITALS: BP 116/73
--- NOTE | 2017-09-22 11:39 | Labor Flowsheet ---
Labor Flowsheet Datetime Report Generated by CPN: 09/22/2017 11:39 Datetime: 09/22/2017 11:24 VITAL SIGNS NBP Sys/Roxi/Mean (mmHg): 116 : 73 : 82 Pulse: 78 Datetime: 09/21/2017 18:14 SpO2 (%): 99 Datetime: 09/20/2017 18:09 STAGE 2 Pushing: Urge to Push Pushing Progress: Descent with Pushing; Caput Noted; Presenting Part Visible; with Pushing Stage 2 Comments: beautiful pushes!! Communication Comments: M Milagrosa here. Datetime: 09/20/2017 17:57 UTERINE ACTIVITY Monitor Mode: External Quality: Moderate Duration (sec): 70-80 Pattern: Normal: <= 5 Contractions in 10 Minutes Resting Tone (Palpate): Relaxed ASSESSMENT A Monitor Mode: External US FHR Baseline Rate : 125 FHR Baseline Changes: No Baseline Change Variability: Moderate 6-25 bpm Accelerations: 15X15 Membrane Status: Intact MATERNAL ASSESSMENT Level of Consciousness: Fully Conscious Headache: Denies RUQ Epigastric Pain: Denies Antibiotics: Penicillin IV (Units) @ [id number] Oxygen Method: Room Air Patient Position/Activity: Left Tilt Strip Reviewed by: Natalie Morales RNC ANESTHESIA Anesthesia Plans: Epidural COMMUNICATION Communication: RN at Bedside Datetime: 09/20/2017 17:55 Decelerations: Variable Category: Category II Comments: Bernie decel with push. Pt to L side. Good recovery, PP@+2> M Milagrosa on her way. Pushing Position: Pushing with Contractions Datetime: 09/20/2017 17:48 Anesthesia Level Check: T10- Umbilicus Datetime: 09/20/2017 17:46 Contraction Comments: not pushing as yet. Datetime: 09/20/2017 17:30 Stage of : Recovery Datetime: 09/20/2017 17:29 VAGINAL EXAM Dilatation (cm): 10.0 Effacement (%): 100 Station: 2 Exam by: Natalie Morales [facility] Membranes Rupture Method: Spontaneous Amniotic Fluid Color: Clear Amniotic Fluid Amount: Moderate Amniotic Fluid Odor: Normal Vaginal Bleeding: None Cervix, Position: Anterior I/O Interventions: Straight Cath (ml) @ 700 Notification Reason: Status Datetime: 09/20/2017 16:00 Temperature (C): 36.9 Frequency (min): 4 Plan of Care: Plan of Care Discussed; Vaginal Delivery Datetime: 09/20/2017 15:59 LaborFlag: Labor Datetime: 09/20/2017 15:30 Pain Presence: None/Denies Pain Coping: Sleeping Datetime: 09/20/2017 14:55 Epidural Procedure Other: Pump Started Datetime: 09/20/2017 14:30 Breath Sounds, Left: Clear and Equal Breath Sounds, Right: Clear and Equal Pain Management: Epidural Datetime: 09/20/2017 14:28 Epidural Procedure: Loading Dose Anesthesia Comments: pt still uncomfortable. bolus given by Irma Debi CAUL DRESSER Datetime: 09/20/2017 14:00 PATIENT CARE IV/Blood Work: IV Bolus Given ml @ 500 PROCEDURE TIME OUT Procedure Verify: Correct Patient Identity; Correct Side and Site are Marked; Accurate Procedure Co nsent Form; Agreement on Procedure to be Done; Correct Patient Position Epidural Positioning: Sitting Datetime: 09/20/2017 13:41 MEDICATIONS Analgesics/Sedatives: Fentanyl (mcg) @ 100 Datetime: 09/20/2017 13:30 Pain Type: Cramping Pain Location: Abdomen Pain Assessment Comments: Pt wants her epidural. Will give Fentanyl for pain relif until CAUL DRESSER gets here Cervix, Consistency: Soft Provider Reviewed Strip: Yes Datetime: 09/20/2017 13:19 Patient Care Comments: bouncing on ball Datetime: 09/20/2017 13:00 Monitor Interventions for FHR: Ultrasound Adjusted PAIN Pain Scale: 7 TEACHING Instructional Method: Verbal Datetime: 09/20/2017 12:30 Antiemetics/Antacids: Zofran (mg) @ 4 Comfort Measures: Breathing/Relaxation Labor/Induction: Antibiotic Use Datetime: 09/20/2017 11:24 Respirations: 16 Lie 'A': Longitudinal Unit Routine: [place] to Room; Call Villagomez; Bed; Visiting Policy; Waiting Areas; Infant Security; Phot ography Medications: Antibiotics Related: Nutrition; Hydration
== END 2017-09-22 11:37 | disposition home or self-care (01) | DRG 775 ==
LOC: WFO 11:05 → FBP 11:10
PROVIDERS: ADMIT Registered Nurse; ATTEND Registered Nurse
PROC: 10E0XZZ Delivery of Products of Conception, External Approach (ICD-10-PCS; principal; 2017-09-20)
PROC: 0KQM0ZZ Repair Perineum Muscle, Open Approach (ICD-10-PCS; 2017-09-20)
DX: O99.824 Streptococcus B carrier state complicating childbirth (principal); O99.02 Anemia complicating childbirth; D64.9 Anemia, unspecified; O69.81X0 Labor and delivery complicated by cord around neck, without compression, not applicable or unspecified; O71.4 Obstetric high vaginal laceration alone; O76 Abnormality in fetal heart rate and rhythm complicating labor and delivery; Z37.0 Single live birth; Z3A.40 40 weeks gestation of pregnancy; Z87.891 Personal history of nicotine dependence
CPT/HCPCS: 36415; 85025

== ENCOUNTER 2017-10-30 08:00 | Outpatient (CLI) | payer MEDICAID | END 2017-10-30 08:01 | disposition home or self-care (01) | LOC: LAB.R 08:00 | PROVIDERS: ATTEND Registered Nurse | DX: Z30.430 Encounter for insertion of intrauterine contraceptive device (principal) | CPT/HCPCS: 87491; 87591 ==

== ENCOUNTER 2017-12-12 14:28 | Outpatient (CLI) | payer MEDICAID ==
[2017-12-12 18:23] LABS: T4 (THYROXINE) 6.64 ug/dL (6.09-12.23)
[2017-12-12 18:27] LABS: THYROID STIMULATING HORMONE 1.26 uIU/mL (0.34-5.60)
[2017-12-12 18:29] LABS: FREE T4 (FREE THYROXINE) 0.8 ng/dL (0.58-1.64)
== END 2017-12-12 14:29 | disposition home or self-care (01) ==
LOC: LAB.F 14:28
PROVIDERS: ATTEND Registered Nurse
DX: O92.70 Unspecified disorders of lactation (principal)
CPT/HCPCS: 36415; 84436; 84439; 84443

== ENCOUNTER 2021-01-25 08:00 | Outpatient (CLI) | payer MEDICAID ==
[2021-01-25 15:09] LABS: ALBUMIN 4.4 g/dL (3.2-5.5); ALBUMIN/GLOBULIN RATIO 1.3 (1.0-2.2); BILIRUBIN,TOTAL 0.5 mg/dL (0.2-1.0); CALCIUM 9.2 mg/dL (8.5-10.3); CREATININE 0.5 mg/dL (0.4-1.0); TOTAL PROTEIN 7.8 g/dL (6.7-8.2)
[2021-01-25 15:24] LABS: BASOPHILS % (AUTO) 0.4 %; EOSINOPHILS # (AUTO) 0.3 10^3/uL (0.0-0.7); HCT - HEMATOCRIT 40.1 % (37.0-47.0); HGB - HEMOGLOBIN 12.9 g/dL (12.0-16.0); LYMPHOCYTES # (AUTO) 2.1 10^3/uL (1.5-3.5); LYMPHOCYTES % (AUTO) 29.6 %; MEAN CORPUSCULAR HEMOGLOBIN 28.9 pg (27.0-31.0); MEAN CORPUSCULAR HGB CONC 32.2 g/dL (32.0-36.0); MEAN CORPUSCULAR VOLUME 89.9 fL (81.0-99.0); MEAN PLATELET VOLUME 10.8 fL (7.9-10.8); MONOCYTES # (AUTO) 0.4 10^3/uL (0.0-1.0); NEUTROPHILS # (AUTO) 4.1 10^3/uL (1.5-6.6); NEUTROPHILS % (AUTO) 59.6 %; PLT - PLATELET COUNT 276 10^3/uL (130-450); RED BLOOD COUNT 4.46 10^6/uL (4.20-5.40); RED CELL DISTRIBUTION WIDTH 12.9 % (12.0-15.0); THYROID STIMULATING HORMONE 0.66 uIU/mL (0.34-5.60)
== END 2021-01-25 23:59 | disposition home or self-care (01) ==
LOC: LAB.S 08:00
PROVIDERS: ATTEND Physician Assistant Medical
DX: R00.2 Palpitations (principal)
CPT/HCPCS: 36415; 80053; 84443; 85025

== ENCOUNTER 2022-03-14 12:12 | Outpatient (CLI) | payer MEDICAID ==
[2022-03-14 14:47] LABS: BASOPHILS % (AUTO) 0.3 %; EOSINOPHILS # (AUTO) 0.2 10^3/uL (0.0-0.7); EOSINOPHILS % (AUTO) 3.9 %; HCT - HEMATOCRIT 39.8 % (37.0-47.0); HGB - HEMOGLOBIN 13.1 g/dL (12.0-16.0); LYMPHOCYTES # (AUTO) 2.2 10^3/uL (1.5-3.5); LYMPHOCYTES % (AUTO) 36.7 %; MEAN CORPUSCULAR HEMOGLOBIN 29.4 pg (27.0-31.0); MEAN CORPUSCULAR HGB CONC 32.9 g/dL (32.0-36.0); MEAN CORPUSCULAR VOLUME 89.2 fL (81.0-99.0); MONOCYTES # (AUTO) 0.5 10^3/uL (0.0-1.0); MONOCYTES % (AUTO) 7.7 %; NEUTROPHILS # (AUTO) 3.1 10^3/uL (1.5-6.6); NEUTROPHILS % (AUTO) 51.1 %; PLT - PLATELET COUNT 260 10^3/uL (130-450); RED BLOOD COUNT 4.46 10^6/uL (4.20-5.40); RED CELL DISTRIBUTION WIDTH 13.2 % (12.0-15.0)
[2022-03-14 15:32] LABS: ALBUMIN 4.4 g/dL (3.2-5.5); ALBUMIN/GLOBULIN RATIO 1.4 (1.0-2.2); BILIRUBIN,TOTAL 0.3 mg/dL (0.2-1.0); CALCIUM 9.9 mg/dL (8.5-10.3); CREATININE 0.5 mg/dL (0.4-1.0); POTASSIUM 4.3 mmol/L (3.5-5.0); TOTAL PROTEIN 7.6 g/dL (6.7-8.2)
== END 2022-03-14 12:13 | disposition home or self-care (01) ==
LOC: LAB.S 12:12
PROVIDERS: ATTEND Physician Assistant Medical
DX: Z51.81 Encounter for therapeutic drug level monitoring (principal); Z79.899 Other long term (current) drug therapy
CPT/HCPCS: 36415; 80053; 85025